=== PATIENT | male | born 1950 | race Caucasian/White ===

== ENCOUNTER 2024-04-16 18:22 | Emergency (ER) | payer MEDICARE, OTHER, SELFPAY ==
[2024-04-16 18:31] VITALS: BP 167/87
[2024-04-16 21:00] VITALS: BP 153/80
[2024-04-16 21:01] VITALS: BP 153/80; BMI 25.8
[2024-04-16 21:10] LABS: % Basophils 0.2 % (0-2); % Eosinophils 0.1 % (0-6); % Immature Granulocytes 0.4 % (0-0.5); % Lymphocytes 7.1 % (20.5-51.1); % Monocytes 3.3 % (1.7-9.3); % Neutrophils 88.9 % (42.2-75.2); Absolute Immature Granulocytes 0.1 10^3/uL (0-0.05); Absolute Lymphocytes 1.2 10^3/uL (1.2-3.4); Absolute Monocytes 0.6 10^3/uL (0.1-0.6); Absolute Neutrophils 15.6 10^3/uL (1.4-6.5); Hematocrit 41.9 % (39.0-52.0); Hemoglobin 15.1 g/dL (13.0-18.0); Mean Corpuscular Hgb 31.1 pg (27.0-31.0); Mean Corpuscular Volume 86.2 fL (80.0-94.0); Mean Platelet Volume 10.4 fL (7.4-10.4); Nucleated Red Blood Cells % 0 % (-); Platelet Count 195 10^3/uL (130-400); Red Blood Cell Count 4.86 10^6/uL (4.70-6.10); Red Cell Dist. Width 13.2 % (11.5-14.5); White Blood Cell Count 17.5 10^3/uL (4.8-10.8)
--- NOTE | 2024-04-16 21:31 | EDRN ---
Updated patient and on blood work and patient ambulated to the restroom to get a urine specimen
[2024-04-16 21:35] LABS: ALT (SGPT) 30 U/L (0-50); AST (SGOT) 33 U/L (17-59); Alkaline Phosphatase 112 U/L (38-126); Blood Urea Nitrogen 20 mg/dl (9-20); Calcium 9.8 mg/dl (8.4-10.2); Carbon Dioxide 24 mmol/L (22-30); Chloride 102 mmol/L (98-107); Estimated Creatinine Clearance 51 ml/min; Glucose 156 mg/dl (70-99); Potassium 3.7 mmol/L (3.5-5.1); Sodium 140 mmol/L (135-145); Total Bilirubin 1.1 mg/dl (0.2-1.3); Total Protein 7.6 g/dl (6.3-8.2); eGFR > 60.00
[2024-04-16 21:36] LABS: Urine Albumin Trace (Neg - Trace); Urine Bilirubin Negative (Negative); Urine Character Clear (Clear); Urine Color Yellow; Urine Glucose Negative (Negative); Urine Ketone 3+ (Negative); Urine Leukocyte Negative (Negative); Urine Nitrite Negative (Negative); Urine Occult Blood 2+ (Negative); Urine Specific Gravity 1.025 (<1.030); Urine Urobilinogen Negative (Neg - 1+)
[2024-04-16 21:41] LABS: Urine Mucus Moderate
[2024-04-16 21:42] LABS: Urine Bacteria Few (Negative); Urine Red Blood Cell 21-25 /HPF (0-2); Urine White Cell 0-2 /HPF (0-5)
--- NOTE | 2024-04-16 21:45 | ED.GENMED ---
History of Present Illness
General
Chief Complaint: Flank Pain
Source: patient
Time Seen by Provider: 04/16/24 21:32
History of Present Illness
History of Present Illness:
73-year-old male presents emergency room complaining left leg pain. Pain began around 4 PM. He describes as a dull constant ache. Nothing makes it better or worse. No associated fever, chills, nausea or vomiting. Patient denies any dysuria or
frequency. He does have a history of prostatic hypertrophy for which he takes medication. His urologist is not associated with [facility].
Phy Exam
Physical Exam
Physical Exam:
General: Awake, Alert, Oriented X3. Appears uncomfortable
Vitals: unremarkable
Head: Atraumatic
Eyes: Pupils equal, EOMI
Throat: Airway intact, no exudates
Neck: Trachea midline
Lungs: Clear and equal b/l
Heart: Regular rate, no murmurs
Abd: Soft, Nontender, No pulsatile mass
Back: Mild left CVA tenderness to percussion
Neuro: Nonfocal
Skin: Warm, dry, no rash
Extremities: pulses equal b/l, no edema
Course
Orders/Labs/Results
Orders:
Orders
04/16/24 20:55
Complete Blood Count/With Diff Urgent
Comprehensive Metabolic Panel Urgent
04/16/24 21:28
Urinalysis Reflex To Culture Urgent
Date Specimen was Collected: 04/16/24
Time Specimen was Collected: 21:24
Urine Microscopic Reflex Cult Urgent
04/16/24 21:39
0.9% Sodium Chloride 500 ml [Nss] 500 ml IV BOLUS
Ketorolac [Toradol] 15 mg IV NOW STA
04/16/24 21:42
CT Abd/pel Without Iv Or Oral Urgent
Comment:
Reason For Exam: left flank pain
Abnormal Lab Results
04/16/24 04/16/24
20:55 21:28
WBC 17.5 H 10^3/uL
(4.8-10.8)
MCH 31.1 H pg
(27.0-31.0)
Abs Immat Gran (auto) 0.1 H 10^3/uL
(0-0.05)
Absolute Neuts (auto) 15.6 H 10^3/uL
(1.4-6.5)
Neutrophils % 88.9 H %
(42.2-75.2)
Lymphocytes % 7.1 L %
(20.5-51.1)
Glucose 156 H mg/dl
(70-99)
Urine Ketones 3+ A
(Negative)
Ur Occult Blood Reflex 2+ A
(Negative)
Urine RBC 21-25 A /HPF
(0-2)
Urine Bacteria (Reflex) Few A
(Negative)
04/16/24 20:55
04/16/24 20:55
Vital Signs
Initial and Last Documented VS:
Initial Vital Signs
Temp Pulse Resp BP Pulse Ox
98.6 F 98 18 167/87 98
04/16/24 18:31 04/16/24 18:31 04/16/24 18:31 04/16/24 18:31 04/16/24 18:31
Last Documented Vital Signs
Temp Pulse Resp BP Pulse Ox
98.6 F 91 16 153/80 95
04/16/24 18:31 04/16/24 21:01 04/16/24 21:01 04/16/24 21:01 04/16/24 21:30
*Critical Care Note
Total Time (30-74mins, 75-104mins- exclusive of procedures): Not Applicable
ED Attending Note
-
Portions of this chart may have been created with voice recognition software.� Occasional wrong word or��sound alike� substitutions may have occurred due to the inherent limitations of voice recognition software.
Discharge Plan
Departure
Patient Disposition: Home (Routine Discharge)
Date of Disposition: 04/16/24
Time of Disposition: 23:20
Patient with high blood pressure during this ER visit?: Yes
Condition: Good
Discharge Problem:
Kidney stone on left side
Instructions: Kidney Stones (DC), BLOOD PRESSURE
Prescriptions:
New
ondansetron 4 mg tablet,disintegrating
4 mg PO TID PRN (Reason: nausea and vomiting) Qty: 12 0RF
oxycodone 5 mg tablet
5 mg PO Q6H PRN (Reason: Pain) Qty: 12 0RF
Referrals:
Yaw Cooper MD [Family Provider] -
Activity Restrictions/Additional Instructions:
Return to the emergency room if you develop a fever. Follow-up with your urologist. You can take Tylenol 650 mg and ibuprofen 600 mg every 6 hours for pain. Take the oxycodone only if needed.
Interventions
Interventions:
*Risk Screen - Suicide Last Done: 04/16/24 18:31
*General Assessment Last Done: 04/16/24 18:31
*Neglect/Abuse Screening Last Done: 04/16/24 18:31
ED- Fall Risk Assessment Last Done: 04/16/24 21:01
*ED COVID-19 Vaccine History Last Done: 04/16/24 18:31
QC-Vduvpf-Zwljfdwcqs Assessment Last Done: 04/16/24 21:01
ED-Male Genitourinary Assessment Last Done: 04/16/24 21:01
Discharge Date and Time
Print Language: CITIZEN OF [place]
[2024-04-16] MEDS: TORADOL 15 MG IV (21:47)
[2024-04-16] MEDS: NSS 500 IV (21:47)
--- NOTE | 2024-04-16 22:40 | EDRN ---
Patient states pain is a little better, call [facility] in reach, aware we are waiting on results
--- NOTE | 2024-04-16 23:17 | EDRN ---
Dr. Marinelli in to update patient on CT results
[2024-04-16] MEDS: ROXICODONE 5 MG PO (23:27)
== END 2024-04-16 23:37 | disposition home or self-care (01) ==
LOC: EMR 18:22
PROVIDERS: EMERGENCY PHYSICIAN Emergency Medicine; FAMILY PHYSICIAN Internal Medicine
DX: N20.0 Calculus of kidney (principal); N40.0 Benign prostatic hyperplasia without lower urinary tract symptoms
CPT/HCPCS: 99284; 96374; 96361; 74176; 80053; 81003; 81015; 85025